=== PATIENT | male | born 1960 | race Caucasian/White ===

== ENCOUNTER → 2018-06-11 07:15 | Outpatient (CLI) | payer OTHER, SELFPAY ==
--- NOTE | 2018-06-11 07:26 | XR_ITS ---
XR hand RT min 3V HISTORY: ITS.REASON: RT HAND PAIN ORDERING PHYSICIAN: Jamie Nichols MD PATIENT AGE: 58 years COMPARISON: None FINDINGS: No fracture or dislocation. No lytic or blastic change. There is normal mineralization.. The joint spaces are well-preserved. No significant degenerative/arthritic changes. No erosive changes evident.. Small areas of periarticular calcification noted along the dorsal aspect of the interphalangeal joint of the thumb which could be related to an old injury. IMPRESSION: No acute finding. Possible old avulsion fracture at the interphalangeal joint of the thumb
--- NOTE | 2018-06-11 07:26 | XR_ITS ---
XR hand LT min 3V HISTORY: ITS.REASON: LT HAND PAIN ORDERING PHYSICIAN: Jamie Nichols MD PATIENT AGE: 58 years COMPARISON: None FINDINGS: No fracture or dislocation. No lytic or blastic change. There is normal mineralization.. The joint spaces are well-preserved. No significant degenerative/arthritic changes. No erosive changes evident.. IMPRESSION: Negative, no acute finding
== END ==
PROVIDERS: PCP Family Medicine; Visit Provider Family Medicine
DX: M79.642 Pain in left hand (principal); M79.641 Pain in right hand
CPT/HCPCS: 73130

== ENCOUNTER 2020-08-11 06:24 | Emergency (ER) | payer OTHER, SELFPAY ==
[2020-08-11] VITALS (9 sets, daily range): BP systolic 106–131; BP diastolic 55–80; PULSE 41–58; RESP 15–21; TEMP 36.8; O2SAT 96–98; BMI 32.1
--- NOTE | 2020-08-11 06:36 | ECG_ITS ---
APPROVED REPORT Exam: Resting ECG HR:38 bpm ECG Measurements Heart Rate 38 AXES VT 184 P 44 QRSd 114 QRS 42 QT 490 T 40 QTc 389 Conclusion Marked sinus bradycardia Abnormal ECG Electronically signed by : Darien Barrett, 08/12/2020 07:29:39
--- NOTE | 2020-08-11 06:38 | XR_ITS ---
PROCEDURE INFORMATION: Exam: XR Chest Exam date and time: 08/11/2020 6:38 AM Age: 60 years old Clinical indication: Chest wall pain; Additional info: Midepigastric pain TECHNIQUE: Imaging protocol: XR of the chest. Views: 1 view. COMPARISON: No relevant prior studies available. FINDINGS: Lungs: Unremarkable. No consolidation. Pleural spaces: Unremarkable. No pleural effusion. No pneumothorax. Heart/Mediastinum: Unremarkable. No cardiomegaly. Bones/joints: Unremarkable. IMPRESSION: No acute findings.
[2020-08-11 06:47] LABS: Basophils # 0.1 K/mm3 (0-0.2); Basophils % 0.6 % (0.1-2.0); Eosinophils # 0.1 K/mm3 (0.0-0.4); Eosinophils % 0.8 % (0.1-12.0); Hematocrit 44.3 % (42.0-52.0); Hemoglobin 14.8 g/dL (14.1-18.0); Lymphocytes # 1.9 K/mm3 (0.7-4.5); Lymphocytes % 14.5 % (10-50); Mean Corpuscular HGB Conc 33.4 g/dL (31.8-35.4); Mean Corpuscular Volume 80.8 fl (80-94); Mean Platelet Volume 7.7 fl (7.4-10.4); Monocytes # 0.7 K/mm3 (0.1-1.0); Monocytes % 5.3 % (1.7-9.3); Neutrophils # 10.4 K/mm3 (1.8-7.8); Neutrophils % 78.8 % (37.0-80.0); Platelet Count 237 K/mm3 (142-424); Red Blood Count 5.49 M/mm3 (4.60-6.20); White Blood Count 13.2 K/mm3 (4.8-10.8)
--- NOTE | 2020-08-11 06:47 | CT_ITS ---
PROCEDURE: CT ANGIO CHEST CT ANGIO ABDOMEN CLINCIAL INDICATION: abdominal pain Severe epigastric pain. Evaluate for dissection COMPARISON: CT CT ANGIO ABDOMEN PELVIS from 08/11/2020 TECHNIQUE: IV Contrast: 70ML Isovue 370 Axial images obtained with sagittal and coronal reformats. All CT scans at the facility use one or more dose reduction, viz: automated exposure control, ma/kV adjustment per patient size (including targeted exams where dose is matched to indication, i.e. head), or iterative reconstruction technique. FINDINGS: CTA chest: No evidence of aortic aneurysm or dissection. No significant plaque apparent no evidence of pulmonary embolus. CT angio abdomen no aneurysm or dissection. No stenotic lesions of the celiac or SMA. There is minimal fusiform dilatation of the celiac artery at 10 mm nonspecific. There are 3 left renal arteries and 2 right renal arteries. No stenotic lesion or aneurysm. The common, external, and internal iliac arteries are unremarkable. No mediastinal or hilar mass or adenopathy. Lungs are clear. Small area of enhancement is noted in the right hepatic lobe segment 7 measuring approximately 12 mm nonspecific there is mild fatty liver. Small area of enhancement versus focal fatty sparing noted in the right hepatic lobe segment 8 measuring 14 x 10 mm adjacent to the gallbladder. The spleen, adrenal glands, pancreas, and kidneys have an unremarkable appearance. No intestinal obstruction or free air. Unremarkable appearing appendix. There are few colonic diverticula but no evidence of diverticulitis. Prostate is slightly prominent at 4.9 cm. There are few air-fluid levels within the small bowel with a few prominent loops in the left mid abdominal region measuring up to 4 cm. There is a small umbilical hernia containing fat. Mild degenerative changes within the spine. There is partial fusion of the SI joints with anterior bony bridging. Sclerotic focus is present in the left aspect of the sacrum at 11 mm and in the right ilium which is nonspecific. The IMPRESSION: 1. Negative CTA of the chest and abdomen. No aneurysm or dissection. 2. Scattered air-fluid levels within the small bowel with a few mildly prominent loops which may indicate enteritis. 3. Nonspecific areas of enhancement of the liver. Nonemergent MRI with hemangioma protocol may provide further evaluation. 4. 11 mm sclerotic focus of the left aspect of the sacrum into the right ilium. Consider follow-up to confirm stability Dictated by: Vamshi Blackwell MD 08/11/2020 08:26 Vamshi Blackwell MD in [place] 08/11/2020 08:26
--- NOTE | 2020-08-11 06:49 | HMH.EDGENADL ---
ED Disposition Clinical Impression: Epigastric pain, Bradycardia, Exposure to chemical inhalation Disposition: Still a Patient Condition on Discharge: Fair Instructions: DI for Atypical Chest Pain Referrals: Brenda Mark APRN [Primary Care Provider] - Time of Disposition: 08:06 - Critical Care Critical Care Time: No Attestation: On 08/11/20, the high probability of a clinically significant, sudden or life threatening deterioration of the following system(s) required my full and direct attention, intervention and personal management. The time I documented below is in addition to time spent performing reported procedures but includes the following listed in this critical care notation. Medical Decision Making - Medical Records Medical records reviewed: Yes: I reviewed the patient's medical records. - [place] Inquiry Pt receiving controlled substance: No Vital Signs: 08/11/20 06:32 08/11/20 07:11 Temperature 98.2 F Temperature Source Oral Pulse Rate 41 L Pulse Rate [Right Brachial] 41 L Respiratory Rate 18 19 Blood Pressure 131/79 Blood Pressure [Right Arm] 130/76 Blood Pressure Mean 90 Blood Pressure Mean [Right Arm] 94 02 Sat by Pulse Oximetry 98 97 Oxygen Delivery Method Room Air - Lab Data Lab Results 08/11/20 06:30: WBC 13.2 H, RBC 5.49, Hgb 14.8, Hct 44.3, MCV 80.8, MCH 27.0, MCHC 33.4, RDW 14.0, Plt Count 237, MPV 7.7, Neut % (Auto) 78.8, Lymph % (Auto) 14.5, Brooks % (Auto) 5.3, Eos % (Auto) 0.8, Baso % (Auto) 0.6, Neut # (Auto) 10.4 H, Lymph # (Auto) 1.9, Brooks # (Auto) 0.7, Eos # (Auto) 0.1, Baso # (Auto) 0.1 08/11/20 06:30: Lipase 54 08/11/20 06:35: Sodium 141, Potassium 4.2, Chloride 106, Carbon Dioxide 27, Anion Gap 12.2, BUN 19, Creatinine 1.00, Estimated Creat Clear 128, Estimated GFR 76, Est GFR ( Amer) 93, Glucose 135 H, Calcium 8.8, Total Bilirubin 0.8, Direct Bilirubin 0.2, Conjugated Bilirubin 0.0, Indirect Bilirubin 0.6, Unconjugated Bilirubin 0.6, AST 28, ALT 28, Alkaline Phosphatase 88, Troponin I < 0.01, Total Protein 6.9, Albumin 3.9, Amylase 49 Result diagrams: 08/11/20 06:30 08/11/20 06:35 Orders (Tests/Meds): ED MEDICATIONS Generic Name Dose Route Start Last Admin Trade Name Freq PRN Reason Stop Dose Admin Iopamidol 100 ml 08/11/20 08:03 Iopamidol-370 (76%);100ml Bottle IV 08/11/20 08:04 ONCE ONE Sodium Chloride 10 ml 08/11/20 07:56 Sodium Chloride 0.9% 10ml Vial IV 09/10/20 07:55 NEEDED PRN dilute protonix Sodium Chloride 40 ml 08/11/20 08:03 0.9 % Sodium Chloride 50 Ml Vial IV 08/11/20 08:04 ONCE ONE Sodium Chloride 10 ml 08/11/20 08:03 Sodium Chloride 0.9% 10ml Syr (Rad Only) IV 08/11/20 08:04 ONCE ONE Discontinued Medications Generic Name Dose Route Start Last Admin Trade Name Freq PRN Reason Stop Dose Admin Aspirin 324 mg 08/11/20 06:47 08/11/20 06:48 Aspirin 81mg Chewable Tablet PO 08/11/20 06:48 324 mg ONCE ONE Administration Belladonna Alkaloids 60 ml 08/11/20 07:57 Gi Cocktail 60ml Udc PO 08/11/20 07:58 ONCE ONE Pantoprazole Sodium 40 mg 08/11/20 07:56 Pantoprazole 40mg Vial IV 08/11/20 07:57 ONCE ONE ORDERS Category Date Time Status CT angio abdomen pelvis Stat Cat Scan 08/11/20 06:[address] angio chest - dissection Stat Cat Scan 08/11/20 06:47 Ordered Chest XR -- portable [XR chest portable] Stat Exams 08/11/20 06:38 Taken Troponin I Q3H Lab 08/11/20 09:45 Ordered Troponin I Q3H Lab 08/11/20 12:45 Ordered EKG Request [ECG Request by /Nse] Stat Y 08/11/20 07:44 Ordered - ECG Data Tracing #1 Sinus bradycardia with ventricular rate of 38 bpm. QRS 114, QTc 389. Marked upsloping in the lateral leads, V4, V5, V6. Peaked T waves but also evidence of LVH. No arrhythmia. - CHOLO Score for Non-Stemi Age of Patient: 50-59 years old Heart Rate: <50 bpm Systolic Blood Pressure: 120-139 mmhg Serum Creatinine: 0.80-
[2020-08-11 06:57] LABS: Lipase 54 U/L (23-300)
[2020-08-11 06:58] LABS: Alanine Aminotransferase 28 U/L (12-78); Albumin Level 3.9 g/dl (3.5-5.0); Alkaline Phosphatase 88 U/L (38-126); Amylase 49 U/L (30-110); Aspartate Amino Transferase 28 U/L (17-59); Bilirubin,Direct 0.2 mg/dl (0.0-0.4); Bilirubin,Indirect 0.6 mg/dL (0.0-0.9); Bilirubin,Total 0.8 mg/dl (0.2-1.3); Bilirubin,Unconjugated 0.6 mg/dL (0.0-1.1); Blood Urea Nitrogen 19 mg/dl (9-20); Calcium 8.8 mg/dl (8.4-10.2); Carbon Dioxide 27 mmol/L (22.0-30.0); Creatinine Clearance Estimated 128 mL/min (50-200); Estimated Glomerular Filt Rate 76 ml/min (>60); GFR (African American) 93 ML/MIN (>60); Glucose 135 mg/dl (74-100); Potassium 4.2 mmoL/L (3.5-5.1); Sodium 141 mmol/L (136-145); Total Protein,Serum 6.9 g/dl (6.3-8.2)
--- NOTE | 2020-08-11 07:05 | PC.NURSE ---
Pt HR 41, ER MD is aware, will continue to monitor.
[2020-08-11 07:11] LABS: Troponin I < 0.01 ng/ml (0.00-0.034)
[2020-08-11 07:16] LABS: Anion Gap 12.2 mEq/L (5-15); Chloride 106 mmol/L (98-107)
--- NOTE | 2020-08-11 07:27 | PC.NURSE ---
per rad staff Marylin, states she just spoke with [facility] again, states [facility] staff states they will try to move pt up in line for readings. Marylin staff studies were marked stat and emergent. ER aware.
--- NOTE | 2020-08-11 07:30 | PC.NURSE ---
pt to CT
--- NOTE | 2020-08-11 07:48 | PC.NURSE ---
pt return from CT
--- NOTE | 2020-08-11 07:53 | ECG_ITS ---
APPROVED REPORT Exam: Resting ECG HR:40 bpm ECG Measurements Heart Rate 40 AXES MN 180 P 35 QRSd 114 QRS 40 QT 482 T 38 QTc 392 Conclusion Marked sinus bradycardia Abnormal ECG Electronically signed by : Darien Barrett, 08/12/2020 07:29:28
--- NOTE | 2020-08-11 08:29 | US_ITS ---
PROCEDURE: US GALLBLADDER CLINICAL INDICATION: upper abdo pain COMPARISON: CT CT ANGIO ABDOMEN PELVIS from 08/11/2020 FINDINGS: Pancreas: Pancreatic tail is not well visualized. The body and head of the pancreas has an unremarkable appearance. Liver: Unremarkable. There is appropriate direction of blood flow within a non dilated portal vein. Right kidney: Unremarkable appearing. No hydronephrosis. Gallbladder: The gallbladder is full of sludge with numerous tiny hyperechoic foci which could be due to sludge and/or sludge with tiny stones. No gallbladder wall thickening, pericholecystic fluid, or biliary dilatation is evident. Common bile duct is 3 mm. IMPRESSION: Gallbladder is full sludge with multiple small hyperechoic foci which could also be due to tiny nonshadowing stones with sludge. Dictated by: Vamshi Blackwell MD 08/11/2020 09:31 Vamshi Blackwell MD in [place] 08/11/2020 09:31
--- NOTE | 2020-08-11 08:30 | PC.NURSE ---
notified cardiology office of consult on pt per ER MD request. Spoke with
--- NOTE | 2020-08-11 08:43 | PC.NURSE ---
Pt being taken to ultrasound
--- NOTE | 2020-08-11 09:06 | PC.NURSE ---
Pt is back from Ultrasound
--- NOTE | 2020-08-11 09:52 | PC.NURSE ---
Joshua Rahman in room with patient.
--- NOTE | 2020-08-11 10:04 | CA_ITS ---
APPROVED REPORT EXAM: Comprehensive 2D, Doppler, and color-flow Echocardiogram Report Clerk: Kristy Anderson RVT Ht: 6 ft 2 in Wt: 250lbs BSA: 2.39 BP: 131/79 mmHg Indications: CP,BRADYCARDIA 2D Dimensions LVOT 2.17 cm (M/F) 1.5-2.5 LA Volume 44.50 mL LA Volume Index 18.61 mL/m2 (M/F) 16-34 M-Mode Dimensions RVDd 3.36 cm (0.9-2.6) LA Diam 4.58 cm (1.9-4.0) LVDd 5.10 cm (3.5-5.7) Ao Diam 3.00 cm (2.0-3.7) LVDs 3.10 cm (3.5-5.7) IVSd 0.93 cm (0.6-1.1) PWd 1.15 cm (0.6-1.1) EF (Teich) 69.40% FS 39.20% EDV (Teich) 123.80 mL TAPSE 2.60 (<1.7) ESV (Teich) 37.90 mL LV Diastology E Decel Time 223.00 (160-240 msec) E/A Ratio 0.7 MED E' 8.90 (< 7 cm/sec) E'/MED E' Ratio 7.96 (>14) LAT E' 13.60 (<10 cm/sec) E/LAT E' Ratio 5.21 (>14) Aortic Valve AO Peak GR. 6.60 mmHg Mitral Valve MV E Max Richardson. 71.00 (40-130 cm/s) MV A Velocity 99.00 (40-130 cm/s) E/A Ratio 0.72 MV Decel. Time 223.00 (160-240 ms) MV PHT 65.00 ms Pulmonary Valve PV Peak Velocity 89.00 (50-150 cm/s) Tricuspid Valve TR P. Velocity 182.00 cm/s RAP Estimate 10.00 mmHg RVSP 23.20 mmHg Left Ventricle Left atrium is normal size, left ventricle is normal size, there is no concentric left ventricular hypertrophy, visually estimated ejection fraction 55% with no regional wall motion abnormality, diastolic parameters are within normal range. Right Ventricle Right atrium and right ventricle mildly enlarged with normal contractility. Aortic Valve Aortic valve is grossly normal, there is no aortic stenosis or aortic insufficiency. Mitral Valve Mitral valve grossly normal, there is trace mitral regurgitation. Tricuspid Valve Tricuspid grossly normal, there is trace tricuspid regurgitation, tricuspid regurgitation jet velocity is inadequate for calculation of the right ventricular systolic pressure. Pulmonic Valve Pulmonic valve is poorly visualized. Great Vessels Aortic root is normal size. Pericardium No significant pericardial effusion noted. Conclusion 1. Normal left ventricular size, preserved left ventricular systolic function, visually estimated ejection fraction 55% with no regional wall motion abnormality, diastolic parameters are within normal range. 2. Mildly enlarged right ventricle with normal contractility. 3. Trace mitral and tricuspid regurgitation. 4. No significant pericardial effusion noted. Electronically signed by : Tommy De Souza, 08/11/2020 13:25:12
--- NOTE | 2020-08-11 10:17 | PC.NURSE ---
contacted surgery office, spoke BJ states Dr. Higginbotham just went into surgery. ER is wanting pt to have follow up care. appt scheduled for FridayAugust 16 at 9am. ER notified of the above. Will relay appt time to pt prior to d/c.
--- NOTE | 2020-08-11 10:19 | PC.NURSE ---
cv lab staff at for echo
[2020-08-11 10:21] LABS: Troponin I < 0.01 ng/ml (0.00-0.034)
--- NOTE | 2020-08-11 10:38 | HMH.CNCARD ---
History of Present Illness Consult date: 08/11/20 Requesting physician: Hema Wei Chief complaint: Abdominal pain, bradycardia Additional Medical History:: 1. Family history of coronary artery disease in both parents and one half brother 2. Tobacco use in the form of dip 3. Reflux 4. Bradycardia, 08/2020, asymptomatic History of present illness: 60-year-old male presenting to the emergency department with abdominal pain, epigastric pain. Symptoms started last night around 11 PM as he was going to bed. Had pressure sensation in his upper abdomen. [place] like gas pains. Overnight he had difficulty finding a position of comfort. Woke up frequently. Pain was described as constant and cramping. This morning persisted. He presented to the emergency department for evaluation. No history of hypertension, diabetes, coronary artery disease. Does not take medications daily. No medications prior to arrival. He does not go to doctors often. No recent exertional chest pain. 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 No change in bladder or bowel habbits In summary this is a 60-year-old male presenting to the emergency department with epigastric pain. Patient appears uncomfortable on arrival. Bradycardic. Other vital signs within normal limits. Initial EKG concerning for concave upsloping in lateral leads. No ST segment elevation. No heart block or arrhythmia. Concern for peptic ulcer disease, ACS, vasospasm, aortic pathology. Will obtain CBC, CMP, chest x-ray, EKG, troponin profile, lipase, CT angiography of the chest and abdomen. Patient given aspirin. Initial laboratory results are reassuring. No anemia. No renal insufficiency. Initial troponin undetectable. Radiology read of CT angiography pending. No clear aortic pathology, like dissection. Repeat EKG shows no change. Patient given 40 mg IV Protonix and GI cocktail. Care handed off to the oncoming physician, Dr. Wei, pending CT read and repeat troponin. He will follow up on CT read and help disposition accordingly. Patient updated. The above per Dr. Bliss Patient confirms events as noted above. He denies any history of exertional shortness of breath or chest pain. 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 The home remedies taken last evening included Mylanta and a Pepsi with no relief. At the time of my exam the patient's abdominal pain has resolved and he is actually able to get some rest. Heart rate while resting was 40 but upon waking, talking and sitting up isela to 60s beats per minute. Patient is a non-smoker but does use dip, never been treated for hypertension, hyperlipidemia or diabetes. There is a family history of coronary artery disease in both parents and a half brother. Initial troponin is normal and EKG shows sinus bradycardia without acute ST segment changes. [facility] History *Have you ever received a pneumonia vaccine?: No *Have you received a flu vaccine this season?: No - *Social History Smoking Status: Never smoker Alcohol Intake: never *Occupational Status:: employed *Travel in the last 8 weeks: Inside the [facility] Family Hx:: Coronary Artery Disease Meds Home Medications Medication Instructions Recorded Confirmed Type Hydrocod/Acet 5/325 mg [[place] 1 tab PO Q6HP PRN #10 tab 08/11/20 Rx 5/325mg tablet] Ondansetron [Zofran 4mg ODT] 4 mg PO TIDP PRN #10 tab.rapdis 08/11/20 Rx Allergies Allergy/AdvReac Type Severity Reaction Status Date / Time CODEINE Allergy Unknown Uncoded 01/28/17 14:44 Exam Vital signs and Labs for Last 24 Hours: Temp Pulse Resp BP Pulse Ox 98.2 F 58 L 15 108/73 L 98 08/11/20 06:32 08/11/20 10:01 08/11/20 10:01 08/11/20 10:01 08/11/20 10:01 Laboratory Results - last 24 hr 08/11/20 06:30: WBC 13.2 H, RBC 5.49, Hgb 14.8, Hct 44.3, MCV 80.8, MCH 27.0, MCHC 33.4, RDW 14.0, Plt Count 237, MPV 7.7, Neut % (Auto) 78.8, Lymph % (Auto) 14.5, [place] % (Au
--- NOTE | 2020-08-11 10:50 | PC.NURSE ---
notified RT of holter monitor order, spoke with Bhavana
== END 2020-08-11 11:14 | disposition home or self-care (01) ==
PROVIDERS: Emergency Provider Emergency Medicine; PCP Nurse Practitioner
DX: K80.50 Calculus of bile duct without cholangitis or cholecystitis without obstruction (principal); R00.1 Bradycardia, unspecified; Z77.098 Contact with and (suspected) exposure to other hazardous, chiefly nonmedicinal, chemicals; T65.891A Toxic effect of other specified substances, accidental (unintentional), initial encounter; R11.0 Nausea; Y92.89 Other specified places as the place of occurrence of the external cause
CPT/HCPCS: 71045; 71275; 74174; 76705; 80048; 80076; 82150; 83690; 84484; 85025; 93005; 93225; 93226; 93306; 99202; 99283; G0463; Q9967

== ENCOUNTER → 2020-08-22 07:10 | Outpatient (CLI) | payer OTHER, SELFPAY ==
--- NOTE | 2020-08-22 07:16 | NM_ITS ---
APPROVED REPORT Exam: Nuclear Stress Test Indication: Fatigue, Family history, Pre op Patient Location: Outpatient Stress Tech: Jo Ann Marshall SC Tech:Latanya Oconnell, ARRT, RT (R)(N) Ht: 6 ft 0 in Wt: 241 lbs HR: 64 bpm BP: 114/78 mmHg BSA: 2.31 m2 History: Fatigue, Family history, Pre op Procedure: Patient exercised on Daquan protocol 9:45 minutes and sec, resting heart rate 64 bpm, resting blood pressure 114/78 mmHg, with exercise maximum heart rate achived was 107 bpm which is 84 % of the maximum predicted heart rate and blood pressure was 200/80 mmHg. Test was stopped due to SOA and fatigue. Patient denied any complaint of chest pain. Patient has Good exercise capacity, achieved 10.1 METs of workload on treadmill, the blood pressure response to exercise was Hypertensive. Electrocardiogram Resting electrocardiogram showed sinus rhythm, with exercise there is less than 1.[address] segment depression noted from the baseline EKG. The EKG portion of the exercise Myoview is nondiagnostic as patient did not achieve the target heart rate. Cardiac Stress and Resting SPECT Images: Cardiac Stress and Resting SPECT images were obtained using technetium 99m Myoview 32.4 mCi stress and 10.62 mCi at rest. Gated SPECT for analysis of segmental wall motion and calculation of the ejection fraction also done. Cardiac stress and resting SPECT images show uniform myocardial activity without segmental perfusion abnormality, computer derived ejection fraction is 47% with no regional wall motion abnormality, right ventricle is normal size and contractility. Conclusion: 1. The EKG portion of the exercise Myoview was nondiagnostic as patient did not achieve the target heart rate, patient has good exercise capacity achieved 10.1 METs of workload on treadmill, the blood pressure response to exercise was hypertensive, there was no exercise-induced chest discomfort. 2. No scintigraphic evidence of reversible ischemia seen at this level of exercise, computer derived ejection fraction is 47% with no regional wall motion abnormality, right ventricle is normal size and contractility. Electronically signed by : Tommy De Souza, 08/22/2020 19:16:29
--- NOTE | 2020-08-22 07:16 | CA_ITS ---
APPROVED REPORT Exam: Exercise Treadmill Technologist: Jo Ann Marshall, Ht: 6 ft 2 in Wt: 241 lbs BSA: 2.35 m2 HR: 64 bpm BP: 114/78 mmHg Rhythm: NSR/ EARLY REPOLARIZATION CHANGES Medical History Cardiac Risk Factors: FHX of CAD Stress Test Details Test: Mayte HR Resting HR: 56 bpm Max Heart Rate (APMHR): 161.807298 bpm Max HR Achieved: 135 bpm Target HR (85% APMHR): 136.309395 bpm % of APMHR: 83.85 Recovery HR: 107 bpm BP Resting BP: 123/76 mmHg Max BP: 200/80 mmHg Recovery BP: 200.0/80.0 mmHg ECG Resting ECG: NSR/ EARLY REPOLARIZATION CHANGES Clinical Exercise duration: 09:46 min Highest Stage Achieved: Exercise capacity: 10.1 METs Stress ECG Conclusion Pt exercised 9:45 on mayte protocol. No CP noted. No arrhythmias or ectopy noted. Approx. 1mm upsloping ST depression laterally with motion artifact. Probably within normal GXT to HR achieved. Myoview images reported separately. Test Summary Stage 3 01:00 14.0 3.4 112 . . . . REST . . . . . . . Standing REST 04:21 0.0 0.0 56 . 123/ 76 . . Stage 1 01:00 10.0 1.7 82 . . . . Stage 1 02:00 10.0 1.7 86 . . . . Stage 1 03:00 10.0 1.7 90 . 170/ 90 . . Stage 2 01:00 12.0 2.5 97 . . . . Stage 2 02:00 12.0 2.5 105 . . . . Stage 2 03:00 12.0 2.5 104 . 180/ 90 . . Stage 3 01:00 14.0 3.4 112 . . . . Stage 3 02:00 14.0 3.4 119 . . . . Stage 3 . . . . . . . Cardiolite injected Stage 3 03:00 14.0 3.4 119 . . . . Stage 4 00:46 16.0 4.2 134 . . . Stop exercise at 09:46 RECOVERY 01:00 0.0 0.0 107 . . . . RECOVERY 02:00 0.0 0.0 87 . 200/ 80 . . RECOVERY 03:00 0.0 0.0 82 . 200/ 80 . . RECOVERY 04:00 0.0 0.0 75 . 140/ 76 . . RECOVERY 05:00 0.0 0.0 77 . 140/ 76 . . RECOVERY 05:18 0.0 0.0 77 . 137/ 78 . . Electronically signed by : Tommy De Souza, 08/22/2020 19:00:24
[2020-08-22 10:30] LABS: Basophils # 0.1 K/mm3 (0-0.2); Basophils % 1.1 % (0.1-2.0); Eosinophils # 0.3 K/mm3 (0.0-0.4); Eosinophils % 4.5 % (0.1-12.0); Hematocrit 44.3 % (42.0-52.0); Hemoglobin 14.6 g/dL (14.1-18.0); Lymphocytes # 2.1 K/mm3 (0.7-4.5); Lymphocytes % 27.7 % (10-50); Mean Corpuscular Hemoglobin 26.1 pg (27.0-31.2); Mean Platelet Volume 7.5 fl (7.4-10.4); Monocytes # 0.5 K/mm3 (0.1-1.0); Monocytes % 6.6 % (1.7-9.3); Neutrophils # 4.6 K/mm3 (1.8-7.8); Neutrophils % 60.1 % (37.0-80.0); Platelet Count 341 K/mm3 (142-424); Red Blood Count 5.61 M/mm3 (4.60-6.20); Red Cell Distribution Width 13.7 % (11.5-17.5); White Blood Count 7.6 K/mm3 (4.8-10.8)
[2020-08-22 18:24] LABS: Alanine Aminotransferase 20 U/L (12-78); Albumin Level 3.8 g/dl (3.5-5.0); Albumin/Globulin Ratio 1.3 (1.1-1.8); Alkaline Phosphatase 157 U/L (38-126); Anion Gap 14.2 mEq/L (5-15); Aspartate Amino Transferase 20 U/L (17-59); Bilirubin,Total 0.6 mg/dl (0.2-1.3); Blood Urea Nitrogen 5 mg/dl (9-20); Calcium 8.6 mg/dl (8.4-10.2); Carbon Dioxide 25 mmol/L (22.0-30.0); Chloride 100 mmol/L (98-107); Estimated Glomerular Filt Rate 76 ml/min (>60); GFR (African American) 93 ML/MIN (>60); Globulin 2.9 g/dL (1.3-3.2); Glucose 131 mg/dl (74-100); Potassium 3.2 mmoL/L (3.5-5.1); Sodium 136 mmol/L (136-145); Total Protein,Serum 6.7 g/dl (6.3-8.2)
== END ==
PROVIDERS: Surgery; PCP Nurse Practitioner; Visit Provider Physician Assistant
DX: Z01.810 Encounter for preprocedural cardiovascular examination (principal); Z11.52 Encounter for screening for COVID-19; K80.50 Calculus of bile duct without cholangitis or cholecystitis without obstruction
CPT/HCPCS: 36415; 78452; 80053; 85025; 93017; A9502; U0003

== ENCOUNTER → 2020-08-22 10:01 | Outpatient (CLI) | payer OTHER, SELFPAY | PROVIDERS: Visit Provider Surgery | DX: Z01.818 Encounter for other preprocedural examination (principal) | CPT/HCPCS: 36415; 80053; 85025; U0003 ==

== ENCOUNTER 2020-08-25 08:35 | Day surgery (SDC) | payer OTHER, SELFPAY ==
[2020-08-23 10:32] VITALS: BMI 31.7
[2020-08-25] VITALS (12 sets, daily range): BP systolic 103–144; BP diastolic 40–86; PULSE 41–52; RESP 12–18; TEMP 36.1–36.7; O2SAT 94–98
--- NOTE | 2020-08-25 10:10 | P.PN_ITS ---
[facility] Anesthesia Checklist - Structural Data Admitted From: Home Planned Operative Procedure/s: judith kinsey Consent for Planned Operative Procedure(s) Verified: Yes - Additional verifications Anesthesia Reactions: No Hx Blood Transfusions: No Blood Transfusion Reaction: No - Airway Assessment C-Spine Mobility Assessed: Yes TMJ Mobility Assessed: Yes Dentition: Edentulous - Anesthesia Plan Anesthesia Risk discussed: Yes Anesthesia Plan: Verified ASA Class: II Anesthesia Type: General [facility] History I have reviewed the patient's past medical history: Yes Medical History: Denies:: Cancer, Diabetes Mellitus Type 1, Diabetes Mellitus Type 2, Internal Pacemaker, MRSA, Seizures *Have you ever received a pneumonia vaccine?: No *Have you received a flu vaccine this season?: No Other Medical History: Denies: Blood Transfusion Reaction Anesthesia experience/problems:: none Other Surgeries: Yes: No Previous Surgery. No: Pacemaker Amputation: No Fractures: No - *Social History Last grade of school completed: High school graduate Smoking Status: Current every day smoker Tobacco Type: smokeless tobacco # Packs/Day (cigarettes): 1 Alcohol Intake: never Substance Use Type: denies use *Occupational Status:: employed Housing: house Household Members: spouse *Travel in the last 8 weeks: None Family Hx:: Coronary Artery Disease, Heart Attack
--- NOTE | 2020-08-25 11:02 | P.OP_ITS ---
Date of procedure: 08/25/20 Pre-op Diagnosis:: Symptomatic cholelithiasis Umbilical hernia Post-op Diagnosis:: Acute on chronic calculus cholecystitis Procedure performed:: Laparoscopic cholecystectomy Surgeon:: Dean Higginbotham MD Dumper Operator(s):: Tory ASSIGNMENT DESK ASSISTANT:: Howard Monae Anesthesia: GETA Estimated blood loss (mL): 15 Operative findings:: Significant wall thickening Acute serosal inflammation Fairly severe pericholecystic fat stranding Operative note:: After informed consent was obtained, the patient was taken to the operating room and placed in the supine position. General anesthesia was induced and the abdomen was prepped and draped in a sterile fashion. After infiltration with l ocal anesthetic an infraumbilical incision was made. A Veress needle was placed in position. The abdomen was insufflated. A 12 mm optical trocar was placed in position (through the small umbilical hernia). Under direct visualization, a 5 mm trocar was placed in the subxiphoid position and 2 additional 5 mm trocars were placed in the right upper quadrant. The gallbladder was elevated up and ov er the liver margin. The tissue around the cystic duct was carefully dissected. 3 clips were placed proximally and the duct was transected with harmonic lety. Harmonic lety were then utilized to dissect the gallbladder away from the liver margin with careful attention to the control of the cystic artery. The gallbladder was placed in a retrieval bag and removed through the umbilical trocar site. The right upper quadrant was thoroughly irrigated. No active bleeding or bile leak was noted. Fascia at the umbilical trocar site was reapproximated utilizing 0 Ethibond. The remaining trocars were removed. All wounds were irrigated and skin was closed with 4-0 Monocryl in a subcuticular fashion. Steri-Strips were applied. The patient's anesthetic agents were reversed and extubation was completed prior to transfer to recovery in stable condition. Condition: stable Disposition: PACU Specimens:: Gallbladder Complications:: No immediate
--- NOTE | 2020-08-25 11:18 | P.PN_ITS ---
[facility] Anesthesia Record Part I Intake, IV Amount: 1,500 Estimated blood loss (mL): 0 Urine output (mL): 0 Blood Pressure: 144/80 SaO2: 95 Pulse Rate: 50 Respiratory Rate: 12 Temperature: 97.5 F Patient is:: Drowsy, Stable Stable to PACU at:: 11:15
--- NOTE | 2020-08-25 17:37 | P.PN_ITS ---
[facility] Anesthesia Record Part II Discharge Time: 11:45 Destination: Surgical Day Care (OP Surgery) PACU nurse assessment reviewed?: Yes Patient Condition:: Good Anesthesia Complications:: None Swallowing reflex intact?: Yes Cyanosis?: No Blood Pressure: 117/74 Pulse Rate: 44 Temperature: 97.8 F Mental Status: Alert & Oriented Pain level:: 0 Nausea and/or vomitting:: None Intake, IV Amount: 0
== END 2020-08-25 12:45 | disposition home or self-care (01) ==
PROVIDERS: PCP Family Medicine; Visit Provider Surgery
PROC: 0FT44ZZ Resection of Gallbladder, Percutaneous Endoscopic Approach (ICD-10-PCS; CPT 47562; principal; 2020-08-25 10:15)
DX: K81.2 Acute cholecystitis with chronic cholecystitis (principal)
CPT/HCPCS: 47562; 96374; J2405; J2710

== ENCOUNTER → 2021-02-22 14:20 | Outpatient (CLI) | payer OTHER, SELFPAY ==
[2021-02-22 14:42] LABS: Basophils # 0.1 K/mm3 (0-0.2); Basophils % 1.1 % (0.1-2.0); Eosinophils # 0.1 K/mm3 (0.0-0.4); Eosinophils % 2.2 % (0.1-12.0); Hematocrit 36.9 % (42.0-52.0); Hemoglobin 11.9 g/dL (14.1-18.0); Lymphocytes # 0.9 K/mm3 (0.7-4.5); Mean Corpuscular HGB Conc 32.3 g/dL (31.8-35.4); Mean Corpuscular Hemoglobin 28.8 pg (27.0-31.2); Mean Corpuscular Volume 89.2 fl (80-94); Mean Platelet Volume 7.8 fl (7.4-10.4); Monocytes # 0.4 K/mm3 (0.1-1.0); Monocytes % 8.1 % (1.7-9.3); Neutrophils # 3.8 K/mm3 (1.8-7.8); Neutrophils % 71.6 % (37.0-80.0); Platelet Count 269 K/mm3 (142-424); Red Blood Count 4.13 M/mm3 (4.60-6.20); Red Cell Distribution Width 14.9 % (11.5-17.5); White Blood Count 5.4 K/mm3 (4.8-10.8)
[2021-02-22 15:27] LABS: Alanine Aminotransferase 19 U/L (12-78); Albumin Level 4.3 g/dl (3.5-5.0); Albumin/Globulin Ratio 1.7 (1.1-1.8); Alkaline Phosphatase 69 U/L (38-126); Anion Gap 11.6 mEq/L (5-15); Aspartate Amino Transferase 25 U/L (17-59); Bilirubin,Total 1.1 mg/dl (0.2-1.3); Blood Urea Nitrogen 17 mg/dl (9-20); Calcium 9.5 mg/dl (8.4-10.2); Carbon Dioxide 28 mmol/L (22.0-30.0); Chloride 102 mmol/L (98-107); Estimated Glomerular Filt Rate 62 ml/min (>60); GFR (African American) 75 ML/MIN (>60); Globulin 2.5 g/dL (1.3-3.2); Glucose 96 mg/dl (74-100); Potassium 4.6 mmoL/L (3.5-5.1); Sodium 137 mmol/L (136-145); Total Protein,Serum 6.8 g/dl (6.3-8.2)
== END ==
PROVIDERS: Visit Provider Internal Medicine Medical Oncology
DX: Z85.89 Personal history of malignant neoplasm of other organs and systems (principal)
CPT/HCPCS: 36415; 80053; 85025

== ENCOUNTER → 2022-02-19 11:44 | Outpatient (CLI) | payer OTHER, SELFPAY ==
[2022-02-19 12:38] LABS: Basophils # 0.1 K/mm3 (0-0.2); Basophils % 1.2 % (0.1-2.0); Eosinophils # 0.2 K/mm3 (0.0-0.4); Eosinophils % 2.7 % (0.1-12.0); Hematocrit 45.9 % (42.0-52.0); Hemoglobin 14.4 g/dL (14.1-18.0); Lymphocytes # 1.4 K/mm3 (0.7-4.5); Lymphocytes % 25.7 % (10-50); Mean Corpuscular HGB Conc 31.4 g/dL (31.8-35.4); Mean Corpuscular Hemoglobin 27.3 pg (27.0-31.2); Mean Corpuscular Volume 86.8 fl (80-94); Mean Platelet Volume 8.1 fl (7.4-10.4); Monocytes # 0.5 K/mm3 (0.1-1.0); Monocytes % 9.5 % (1.7-9.3); Neutrophils # 3.3 K/mm3 (1.8-7.8); Neutrophils % 60.8 % (37.0-80.0); Platelet Count 269 K/mm3 (142-424); Red Blood Count 5.29 M/mm3 (4.60-6.20); Red Cell Distribution Width 14.5 % (11.5-17.5); White Blood Count 5.5 K/mm3 (4.8-10.8)
[2022-02-19 13:10] LABS: Alanine Aminotransferase 31 U/L (12-78); Albumin Level 4.4 g/dl (3.5-5.0); Albumin/Globulin Ratio 1.5 (1.1-1.8); Alkaline Phosphatase 73 U/L (38-126); Anion Gap 12.2 mEq/L (5-15); Aspartate Amino Transferase 31 U/L (17-59); Bilirubin,Total 1.4 mg/dl (0.2-1.3); Blood Urea Nitrogen 18 mg/dl (9-20); Calcium 8.9 mg/dl (8.4-10.2); Carbon Dioxide 26 mmol/L (22.0-30.0); Chloride 106 mmol/L (98-107); Estimated Glomerular Filt Rate 68 ml/min (>60); GFR (African American) 83 ML/MIN (>60); Globulin 2.9 g/dL (1.3-3.2); Glucose 91 mg/dl (74-100); Potassium 4.2 mmoL/L (3.5-5.1); Sodium 140 mmol/L (136-145); Total Protein,Serum 7.3 g/dl (6.3-8.2)
== END ==
PROVIDERS: PCP Family Medicine; Visit Provider Internal Medicine Medical Oncology
DX: Z85.89 Personal history of malignant neoplasm of other organs and systems (principal)
CPT/HCPCS: 36415; 80053; 85025

== ENCOUNTER → 2022-05-01 23:00 | Outpatient (CLI) | payer OTHER, SELFPAY ==
[2022-05-01 18:51] LABS: Basophils % 0.4 % (0.1-2.0); Eosinophils # 0.2 K/mm3 (0.0-0.4); Hematocrit 48.4 % (42.0-52.0); Hemoglobin 15.4 g/dL (14.1-18.0); Lymphocytes # 1.3 K/mm3 (0.7-4.5); Lymphocytes % 12.9 % (10-50); Mean Corpuscular HGB Conc 31.8 g/dL (31.8-35.4); Mean Corpuscular Hemoglobin 27.1 pg (27.0-31.2); Mean Corpuscular Volume 85.4 fl (80-94); Mean Platelet Volume 8.8 fl (7.4-10.4); Monocytes # 0.6 K/mm3 (0.1-1.0); Monocytes % 6.3 % (1.7-9.3); Neutrophils % 78.4 % (37.0-80.0); Platelet Count 246 K/mm3 (142-424); Red Blood Count 5.67 M/mm3 (4.60-6.20); White Blood Count 10.2 K/mm3 (4.8-10.8)
== END ==
PROVIDERS: PCP Family Medicine; Visit Provider Family Medicine
DX: R05.9 Cough, unspecified (principal)
CPT/HCPCS: 85025

== ENCOUNTER 2023-02-14 09:17 | Outpatient (CLI) | payer OTHER, SELFPAY ==
[2023-02-14 18:51] LABS: Coronavirus 19, PCR Not Detected (NotDetected); Influenza A, PCR Not Detected (NotDetected); Influenza B, PCR Not Detected (NotDetected)
== END 2023-02-14 23:59 ==
LOC: LAB.DROPOF 02-15 09:17
PROVIDERS: PCP Nurse Practitioner; Visit Provider Nurse Practitioner
DX: J06.9 Acute upper respiratory infection, unspecified (principal)
CPT/HCPCS: 87636

== ENCOUNTER 2023-06-17 12:10 | Outpatient (CLI) | payer OTHER, SELFPAY | END 2023-06-17 23:59 | disposition home or self-care (01) | LOC: LAB.DROPOF 06-18 12:10 | PROVIDERS: PCP Nurse Practitioner; Visit Provider Nurse Practitioner | DX: R31.9 Hematuria, unspecified (principal) | CPT/HCPCS: 87086 ==

== ENCOUNTER 2023-07-01 18:00 | Outpatient (CLI) | payer OTHER, SELFPAY ==
[2023-07-01 18:01] LABS: Basophils # 0.1 K/mm3 (0-0.2); Basophils % 0.9 % (0.1-2.0); Eosinophils # 0.2 K/mm3 (0.0-0.4); Eosinophils % 2.9 % (0.1-12.0); Hematocrit 49.1 % (42.0-52.0); Hemoglobin 15.3 g/dL (14.1-18.0); Lymphocytes # 1.7 K/mm3 (0.7-4.5); Lymphocytes % 25.6 % (10-50); Mean Corpuscular HGB Conc 31.1 g/dL (31.8-35.4); Mean Corpuscular Hemoglobin 26.7 pg (27.0-31.2); Mean Corpuscular Volume 86.1 fl (80-94); Monocytes # 0.5 K/mm3 (0.1-1.0); Neutrophils # 4.1 K/mm3 (1.8-7.8); Neutrophils % 62.6 % (37.0-80.0); Platelet Count 253 K/mm3 (142-424); Red Blood Count 5.71 M/mm3 (4.60-6.20); Red Cell Distribution Width 15.2 % (11.5-17.5); White Blood Count 6.6 K/mm3 (4.8-10.8)
[2023-07-01 18:37] LABS: Alanine Aminotransferase 28 U/L (12-78); Albumin/Globulin Ratio 1.4 (1.1-1.8); Alkaline Phosphatase 80 U/L (38-126); Anion Gap 12.2 mEq/L (5-15); Aspartate Amino Transferase 30 U/L (17-59); Bilirubin,Total 1.2 mg/dl (0.2-1.3); Blood Urea Nitrogen 21 mg/dl (9-20); Calcium 9.5 mg/dl (8.4-10.2); Carbon Dioxide 26 mmol/L (22.0-30.0); Chloride 105 mmol/L (98-107); Chol/HDL Ratio 4.1 (1-3.5); Cholesterol 265 mg/dl (140-200); Estimated Glomerular Filt Rate 61 ml/min (>60); GFR (African American) 74 ML/MIN (>60); Globulin 2.9 g/dL (1.3-3.2); Glucose 99 mg/dl (74-100); HDL Cholesterol 64 mg/dl (40-60); Potassium 4.2 mmoL/L (3.5-5.1); Sodium 139 mmol/L (136-145); Total Protein,Serum 6.9 g/dl (6.3-8.2); Triglycerides 149 mg/dl (30-150); VLDL Cholesterol 30 mg/dL (0-40)
[2023-07-01 18:48] LABS: Direct LDL Cholesterol 153.42 mg/dL (100-129)
[2023-07-01 19:06] LABS: Prostate Specific Ag Screen 1.7 ng/ml (0.0-4.0)
[2023-07-01 19:24] LABS: Vitamin B12 412 pg/mL (239-931)
[2023-07-01 20:15] LABS: Hemoglobin A1C 5.5 % (4.0-6.0)
== END 2023-07-01 23:59 | disposition home or self-care (01) ==
LOC: LAB.DROPOF 07-02 09:15
PROVIDERS: PCP Nurse Practitioner; Visit Provider Nurse Practitioner
DX: R10.32 Left lower quadrant pain (principal); R31.9 Hematuria, unspecified; E66.9 Obesity, unspecified; Z68.30 Body mass index [BMI] 30.0-30.9, adult; Z13.1 Encounter for screening for diabetes mellitus; Z13.220 Encounter for screening for lipoid disorders; Z13.21 Encounter for screening for nutritional disorder; Z12.5 Encounter for screening for malignant neoplasm of prostate
CPT/HCPCS: 80053; 80061; 82607; 83036; 85025; G0103

== ENCOUNTER 2024-02-05 12:44 | Outpatient (CLI) | payer OTHER, SELFPAY ==
[2024-02-05 18:33] LABS: Adenovirus,PCR Not Detected (NotDetected); Bordetella Pertussis Not Detected (NotDetected); Chlamydophila Pneumoniae, PCR Not Detected (NotDetected); Coronavirus 19, PCR Not Detected (NotDetected); Coronavirus 229E Not Detected (NotDetected); Coronavirus NL63 Not Detected (NotDetected); Coronovirus HKU1,PCR Not Detected (NotDetected); Human Metapneumovirus Not Detected (NotDetected); Influenza A, PCR Not Detected (NotDetected); Influenza AH1, 2009 Not Detected (NotDetected); Influenza AH1, PCR Not Detected (NotDetected); Influenza AH3,PCR Not Detected (NotDetected); Influenza B, PCR Not Detected (NotDetected); Mycoplasma Pneumoniae, PCR Not Detected (NotDetected); Parainfluenza 1, PCR Not Detected (NotDetected); Parainfluenza 2, PCR Not Detected (NotDetected); Parainfluenza 3, PCR Not Detected (NotDetected); Parainfluenza 4, PCR Not Detected (NotDetected); Respiratory Syncytial Virus Not Detected (NotDetected); Rhinovirus/Enterovirus Not Detected (NotDetected)
[2024-02-06 01:32] LABS: Coronavirus OC43 Detected (NotDetected)
== END 2024-02-05 23:59 | disposition home or self-care (01) ==
LOC: LAB.DROPOF 02-09 12:45
PROVIDERS: PCP Nurse Practitioner; Visit Provider Nurse Practitioner
DX: U07.1 COVID-19 (principal)
CPT/HCPCS: 87633